=== PATIENT | female | born 1995 | race Caucasian/White ===

== ENCOUNTER → 2017-10-04 | Outpatient (CLI) | payer OTHER ==
[2017-10-04 15:58] LABS: TOTAL PROTEIN,URINE 13.8 mg/dl (0-11.9)
== END ==
LOC: LAB 15:32
PROVIDERS: ATTEND Specialist
DX: I10 Essential (primary) hypertension (principal); Z3A.37 37 weeks gestation of pregnancy
CPT/HCPCS: 81050; 84157

== ENCOUNTER → 2017-10-22 | Outpatient (CLI) | payer OTHER ==
[2017-10-22 12:19] LABS: BILIRUBIN,URINE NEGATIVE (NEGATIVE); BLOOD/HEMOGLOBIN,URINE NEGATIVE (NEGATIVE); GLUCOSE, URINE 4+ (NEGATIVE); KETONES,URINE NEGATIVE (NEGATIVE); LEUKOCYTE ESTERASE ,URINE 2+ (NEGATIVE); NITRITES,URINE NEGATIVE (NEGATIVE); PROTEIN,URINE 1+ (NEGATIVE); UROBILINOGEN,URINE NORMAL (NORMAL)
[2017-10-22 12:25] LABS: BASOPHILS % (AUTO) 0.5 % (0.2-1.0); EOSINOPHILS # (AUTO) 0.1 x10^3/uL (0.0-0.2); EOSINOPHILS % (AUTO) 1.3 % (0.9-2.9); HEMATOCRIT 34.8 % (36.0-47.0); HEMOGLOBIN 11.9 g/dL (12.0-16.0); LYMPHOCYTES # (AUTO) 1.9 X10^3/uL (1.3-2.9); LYMPHOCYTES % (AUTO) 21.7 % (21.0-51.0); MEAN CORPUSCULAR HEMOGLOBIN 29.7 pg (27.0-34.0); MEAN CORPUSCULAR HGB CONC 34.2 g/dL (33.0-35.0); MEAN CORPUSCULAR VOLUME 86.8 fL (80.0-100.0); MEAN PLATELET VOLUME 10.4 fL (7.4-11.0); MONOCYTES # (AUTO) 0.9 x10^3/uL (0.3-0.8); MONOCYTES % (AUTO) 10.3 % (0.0-13.0); NEUTROPHILS # (AUTO) 5.9 x10^3/uL (2.2-4.8); NEUTROPHILS % (AUTO) 66.2 % (42.0-75.0); PLATELET COUNT 188 X10^3/uL (150.0-450.0); RED BLOOD COUNT 4.01 X10^6/uL (3.5-5.4); RED CELL DISTRIBUTION WIDTH 13.9 % (11.6-16.5)
[2017-10-22 12:28] LABS: BLOOD UREA NITROGEN 8 mg/dL (7-18); CALCIUM 8.7 mg/dL (8.5-10.1); CARBON DIOXIDE 21.8 mmol/L (21-32); CHLORIDE 107 mmol/L (98-107); COR NA(FOR HYPERGLY) 136 mmol/L (136-145); CREATININE 0.63 mg/dL (0.55-1.02); SODIUM 135 mmol/L (136-145); eGFR BLACK RACES > 60 (>60); eGFR NON BLACK RACES > 60 (>60)
[2017-10-22 12:33] LABS: APPEARANCE,URINE CLEAR (CLEAR); BACTERIA,URINE NEGATIVE /HPF (NEGATIVE); COLOR,URINE YELLOW (YELLOW); RBC,URINE 0-2 /HPF (NEGATIVE); SQUAMOUS EPITHELIAL CELL,UR MANY /HPF (NEGATIVE)
== END ==
LOC: LAB 11:48
PROVIDERS: ATTEND Specialist
DX: Z01.818 Encounter for other preprocedural examination (principal); Z34.83 Encounter for supervision of other normal pregnancy, third trimester
CPT/HCPCS: 36415; 80048; 80307; 81001; 85025; 86592; 86850; 86900; 86901; G0434

== ENCOUNTER 2017-10-25 06:38 | Inpatient (IN) | payer OTHER ==
[~2017-10-25 06:38] MED LIST: AMPICILLIN VIAL 2 GM ONE; D5 1/2 NS 1000 ML 1,000 ML IV ONE; D5 1/2 NS 1L W PITOCIN 20 UNITS/L 20 UNITS/1,000 ML BAG IV ONE; D5LR 1L W PITOCIN 10 UNITS/L 10 UNITS/1,000 ML BAG IV ONE; FENTANYL INJ 100 mcg ONE; LR 1000 ML IV 1,000 ML IV ONE; NS 100 ML IV 100 ML IV ONE; PITOCIN ONE
[2017-10-25] MEDS ORDERED: AMPICILLIN VIAL 2 GM 2 GM in NS 100 ML IV + SPIKE MINIBAG* 100 ML IV SCH (06:42)
[2017-10-25] MEDS ORDERED: D5 1/2 NS 1000 ML 1,000 ML IV SCH (06:42)
[2017-10-25] MEDS ORDERED: PHENERGAN INJ 25 MG IV PRN ×3 (06:42→15:31)
[2017-10-25] MEDS ORDERED: MORPHINE SULFATE INJ 2 MG INJ IVP PRN (06:42)
[2017-10-25] MEDS ORDERED: REGLAN INJ 10 MG VIAL IVP PRN ×2 (06:42→15:31)
[2017-10-25] MEDS ORDERED: D5LR 1L W PITOCIN 10 UNITS/L 10 UNITS/1,000 ML BAG IV PRN (06:42)
[2017-10-25] MEDS ORDERED: PITOCIN IVP ONE (06:42)
[2017-10-25] MEDS ORDERED: NUBAIN INJ 200 MG VIAL MULTIDOSE IVP PRN (06:42)
--- NOTE | 2017-10-25 07:19 | DR.OB ---
OB Quick Note - Assessment/Plan Assessment/Plan: L&D 10/25/17 at 7:05am S-No complaint. O-Afebrile,VSS BYM=[id number] with good LTV, +accel, no decel. CTX=occasional, mild CVX=2-3cm/50%/-1/VTX AROM with clear fluid. IUPC and FSE placed. A-IUP at 39 2/7 weeks for induction PIH +GBS P-Begin pitocin induction IV ABX in labor for GBS Check preeclamptic labs Anticipate
[2017-10-25] MEDS: AMPICILLIN VIAL 1 GM 1 GM in NS 50 ML IV + SPIKE MINIBAG* 50 ML IV SCH ×2 (08:25→11:49)
[2017-10-25] MEDS ORDERED: LR 1000 ML IV 1,000 ML IV ONE (08:29)
[2017-10-25] MEDS ORDERED: FENTANYL INJ 100 mcg EPI ONE (08:29)
[2017-10-25] MEDS: NAROPIN EPIDURAL 0.2% 60 ML with FENTANYL INJ 100 mcg 90 MCG IVP SCH ×4 (09:05→13:08)
[2017-10-25] MEDS ORDERED: NS 100 ML IV 100 ML IV ONE (10:20)
[2017-10-25] MEDS ORDERED: AMPICILLIN VIAL 1 GM ONE (10:21)
--- NOTE | 2017-10-25 12:02 | DR.OB ---
OB Quick Note - Assessment/Plan Assessment/Plan: L&D 10/25/17 at 11:54am Pitocin=10mu/min. Ampicillin S-No complaint. O-Afebrile,VSS ZDC=[id number] with good LTV, +accel, no decel. CTX=q 1 1/2 min., about 45-65mmHg CVX=5cm/75%/0 A-IUP at 39 2/7 weeks for induction PIH +GBS P-Cont. pitocin induction/IV ABX in labor Anticipate
[2017-10-25] MEDS ORDERED: NAROPIN EPIDURAL 0.2% 100 ML ONE (13:06)
[2017-10-25] MEDS ORDERED: MOTRIN TAB 800 MG PO PRN ×2 (14:40→15:31)
[2017-10-25] MEDS ORDERED: D5 1/2 NS 1000 ML 1,000 ML with PITOCIN 20 UNITS IV SCH ×2 (15:00)
[2017-10-25] MEDS ORDERED: AMBIEN PO PRN (15:31)
[2017-10-25] MEDS ORDERED: DERMOPLAST SPRAY TOP PRN (15:31)
[2017-10-25] MEDS ORDERED: ADACEL TDaP IM ONE ×2 (15:31→20:44)
[2017-10-25] MEDS ORDERED: MILK OF MAGNESIA PO PRN (15:31)
--- NOTE | 2017-10-25 17:11 | DR.OB ---
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 Head delivered spontaneously over intact perineum. Nuchal cord x 1 reduced. Nose and mouth bulb suctioned. Body delivered over intact perineum. Cord clamped x 2 and cut. handed to attendant. Cord sent for gases. Placenta delivered spontaneously / intact / 3 vessel cord. No CVX tears noted. A small midline superficial tear noted requiring a figure-of-8 stitch of 0-vicryl for hemostasis. A viable male , wt=7'8" and 8/9, stable to NBN. Mother stable to RR. [id number].
[2017-10-25] MEDS: ZANTAC PO SCH (21:09)
[2017-10-26] MEDS: D5 1/2 NS 1000 ML 1,000 ML with PITOCIN 20 UNITS IV SCH ×4 (01:20→07:00)
[2017-10-26 05:25] LABS: HEMATOCRIT 31.3 % (36.0-47.0); HEMOGLOBIN 10.7 g/dL (12.0-16.0)
[2017-10-26] MEDS: ZANTAC PO SCH ×2 (08:20→20:37)
[2017-10-26] MEDS: PRENATAL PLUS PO SCH (08:20)
[2017-10-26] MEDS ORDERED: ZOFRAN TAB 4 MG SL PRN (23:24)
[2017-10-27] MEDS: ZANTAC PO SCH (08:40)
[2017-10-27] MEDS: PRENATAL PLUS PO SCH (08:40)
[2017-10-27 12:05] VITALS: BP 118/69
== END 2017-10-27 12:40 | disposition home or self-care (01) | DRG 775 ==
LOC: LD 06:38 → MED/SURG 15:37
PROVIDERS: ADMIT Specialist; ATTEND Specialist
PROC: 10E0XZZ Delivery of Products of Conception, External Approach (ICD-10-PCS; principal; 2017-10-25)
PROC: 0UQMXZZ Repair Vulva, External Approach (ICD-10-PCS; 2017-10-25)
PROC: 10907ZC Drainage of Amniotic Fluid, Therapeutic from Products of Conception, Via Natural or Artificial Opening (ICD-10-PCS; 2017-10-25)
PROC: 3E033VJ Introduction of Other Hormone into Peripheral Vein, Percutaneous Approach (ICD-10-PCS; 2017-10-25)
PROC: 00HU33Z Insertion of Infusion Device into Spinal Canal, Percutaneous Approach (ICD-10-PCS; 2017-10-25)
PROC: 3E0234Z Introduction of Serum, Toxoid and Vaccine into Muscle, Percutaneous Approach (ICD-10-PCS; 2017-10-25)
DX: O13.3 Gestational [pregnancy-induced] hypertension without significant proteinuria, third trimester (principal); Z37.0 Single live birth; O99.824 Streptococcus B carrier state complicating childbirth; B95.1 Streptococcus, group B, as the cause of diseases classified elsewhere; O99.613 Diseases of the digestive system complicating pregnancy, third trimester; O71.82 Other specified trauma to perineum and vulva; Z3A.39 39 weeks gestation of pregnancy; Z23 Encounter for immunization
CPT/HCPCS: 09167; 36415; 59409; 80048; 80307; 81001; 83615; 84450; 84460; 84550; 85014; 85018; 85025; 85384; 85610; 85730; 86592; 86850; 86900; 86901; A4216; A4222; S0181; S0197; G0434; J0290; J2550; J2590; J2795; J3010; J7042; J7120